=== PATIENT | male | born 1965 | race Caucasian/White ===

== ENCOUNTER → 2016-12-26 | Outpatient (CLI) | payer OTHER ==
[~2016-12-26] VITALS: Ht 165.1 cm; Wt 86.3 kg
[~2016-12-26] MED LIST: AMOX500C3 PO; BECL0.3A INH; CARV12.5 PO; CITA40TA12 PO; CLON1TAB3 PO; CLON2TAB3 PO; COEN100C7 PO; ESCI1TAB10 PO; GABA-113 PO; HYDR-3763 PO; HYDR-5688 PO; LOSA1TAB PO; LOSA1TAB38 PO; OMEP40CA PO; OXYC-57 PO; PRAV20TA PO; TIOTCAP INH; TOPI50TA16 PO
[2016-12-26 09:14] VITALS: Ht 165.1 cm; Wt 86.3 kg
--- NOTE | 2016-12-26 10:09 | PAT Medication Instructions ---
Service Date Dec 26, 2016. Current Home Medication List Amoxicillin (Amoxil), 500 MG PO Q8H Beclomethasone Dipropionate (Qvar), 2 PUFFS INH BID Carvedilol (Coreg), 12.5 MG PO BID Citalopram Hydrobromide (Celexa), 40 MG PO QAM Clonazepam (Klonopin), 1 MG PO BID Coenzyme Q10 (Ubidecarenone) (Coq10), 100 MG PO QAM Gabapentin (Neurontin), 600 MG PO BID Hydrocodon/Acetaminophen 10MG/300MG (Vicodin Hp (10MG/300MG)), 1 TAB PO BID PRN for Pain Losartan Potassium (Cozaar), 100 MG PO QAM Omeprazole (Prilosec), 40 MG PO QAM Tiotropium Mulino (Spiriva Handihaler), 1 CAP INH QAM Medication Instructions For Your Scheduled Surgery Amoxicillin (Amoxil), 500 MG PO Q8H (currently taking for bronchitis- will finish prior to surgery) - Hold the following medications starting today 12/26/16: Coenzyme Q10 (Ubidecarenone) (Coq10), 100 MG PO QAM - Hold the following medications the morning of surgery: Losartan Potassium (Cozaar), 100 MG PO QAM - Take the following medications the morning of surgery with a sip of water: Tiotropium Mulino (Spiriva Handihaler), 1 CAP INH QAM Omeprazole (Prilosec), 40 MG PO QAM Hydrocodon/Acetaminophen 10MG/300MG (Vicodin Hp (10MG/300MG)), 1 TAB PO BID PRN for Pain (can take up to four hours prior to surgery if needed) Gabapentin (Neurontin), 600 MG PO BID Clonazepam (Klonopin), 1 MG PO BID Carvedilol (Coreg), 12.5 MG PO BID Citalopram Hydrobromide (Celexa), 40 MG PO QAM Beclomethasone Dipropionate (Qvar), 2 PUFFS INH BID - Take the following medications as scheduled the night before surgery: Hydrocodon/Acetaminophen 10MG/300MG (Vicodin Hp (10MG/300MG)), 1 TAB PO BID PRN for Pain Gabapentin (Neurontin), 600 MG PO BID Clonazepam (Klonopin), 1 MG PO BID Carvedilol (Coreg), 12.5 MG PO BID Beclomethasone Dipropionate (Qvar), 2 PUFFS INH BID If you have any questions please call us at [phone] or [phone] ( Pia) or [phone]
[2016-12-26 11:15] LABS: BASO % 0.3 %; BASO ABS # 0.02 K/uL (0-0.2); COMPLETE YES; HEMATOCRIT 43.8 % (42-52); IG% 0.3 %; LYMPH % 38.5 %; MEAN CORPUSCULAR HEMOGLOBIN 34.9 pg (25-34); MEAN CORPUSCULAR HGB CONC 34.9 g/dl (32-36); MEAN PLATELET VOLUME 10.2 fL (7.4-10.4); MONO % 8.2 %; NEUT % 50.7 %; PLATELET COUNT 257 K/uL (130-400); RED BLOOD COUNT 4.38 M/uL (4.7-6.1); WHITE BLOOD COUNT 6.49 K/uL (4.8-10.8)
[2016-12-26 11:17] LABS: URINE APPEARANCE CLEAR (CLEAR); URINE BILIRUBIN NEG (NEG); URINE COLOR DK YELLOW; URINE NITRITE NEG (NEG); URINE PH 6.5 (4.5-7.5); URINE SPECIFIC GRAVITY 1.032 (1.000-1.030); UROBILINOGEN NEG (NEG)
[2016-12-26 11:20] LABS: INR 0.9 (0.9-1.1); PARTIAL THROMBOPLASTIN RATIO 1.1; PROTHROMBIN TIME (PATIENT) 10.1 SECONDS (9.0-12.0)
[2016-12-26 11:23] LABS: MANUAL MICROSCOPIC REQUIRED? NO; REVIEW REQ? NO
--- NOTE | 2016-12-26 11:24 | DIAGNOSTIC IMAGING REPORT ---
CHEST PREADMISSION(PA/LAT) CLINICAL HISTORY: Preoperative chest, smoker, cough. COMPARISON STUDY: No previous studies for comparison. FINDINGS: The cardiac and mediastinal contours are normal. There is no evidence of focal pulmonary consolidation. There is no evidence of failure. No pleural effusions are visualized.[ There is an old left AC joint separation. IMPRESSION: No active disease in the chest. Electronically signed by: Musa Henry M.D. 12/26/2016 11:22 AM Dictated Date/Time: 12/26/2016 11:22 AM
[2016-12-26 11:48] LABS: BUN/CREATININE RATIO 20.9 (10-20); CALCIUM 8.4 mg/dl (8.5-10.1); CREATININE 0.92 mg/dl (0.60-1.40); POTASSIUM 3.8 mmol/L (3.5-5.1)
--- NOTE | 2016-12-26 16:57 | HISTORY & PHYSICAL EXAMINATION ---
DATE OF ADMISSION: 01/05/2017 CHIEF COMPLAINT: Right knee pain. HISTORY OF PRESENT ILLNESS: The patient is a 51-year-old male who complains of right knee pain presenting with pain and stiffness on the right side with an unknown injury. Says that the symptoms have been getting progressively worse. He describes the pain as being aching and sharp. He feels his knee gave way while walking. He has tried a cortisone injection with minimal relief. He has tried physical therapy with minimal relief. He would like to proceed with ACL reconstruction allograft. PAST MEDICAL HISTORY: Significant for hypercholesterolemia, COPD, sleep apnea, anxiety, shortness of breath while climbing stairs, osteoarthritis, GERD, BPH. PAST SURGICAL HISTORY: Right hip replacement in 2014, cholecystectomy, left ACL reconstruction, tonsillectomy. SOCIAL HISTORY: The patient denies alcohol use. He smokes half pack a day for 31 years. He denies IV drug use. He lives in a 1-story house. He is currently on disability. FAMILY HISTORY: Dad had a heart attack. Mom had a brain aneurysm. MEDICATIONS: Celexa 40 mg once a day, Prilosec 20 mg once a day, QVAR 80 mg b.i.d., Klonopin 1 mg b.i.d., losartan 100 mg daily, gabapentin 600 mg b.i.d. ALLERGIES: TO CODEINE AND ALBUTEROL. REVIEW OF SYSTEMS: He denies fevers, chills, headaches, weight loss, double vision, blurry vision, sore throat, hearing loss, tremors, dizziness, numbness or tingling, tired, thirsty, hot or cold intolerance, abdominal pain, nausea, vomiting, diarrhea, chest pain, swelling into his legs or feet, frequency of going to the bathroom, pain or burning with urination, incontinence, wheezing, cough, shortness of breath, depression, thoughts of harming himself or harm others. There is no anxiousness. He is positive for joint pain, stiffness and swelling of the right knee. OBJECTIVE: GENERAL APPEARANCE: The patient is a 51-year-old male sitting in no acute distress, well dressed, well nourished. He is awake, alert and oriented x3. VITAL SIGNS: He is 5 feet 5 inches, 188 pounds, blood pressure 129/99. HEENT: Extraocular movements are intact. PERRLA, mucosa was moist. No septal deviation. NECK: Supple with no lymphadenopathy, no JVD, no thyromegaly. HEART: Regular rate and rhythm with no murmurs or gallops. LUNGS: Clear to auscultation without wheezing or rhonchi. ABDOMEN: Soft, nontender, nondistended. Normal bowel sounds. No hepatosplenomegaly. EXTREMITIES: Paying particular attention to the right lower extremity, his knee skin is intact without ecchymosis or erythema. The patient has full range of motion of both extremities. He has appropriate strength bilaterally. He is neurovascularly intact. He does have a positive Sravan, positive anterior drawer. He is stable with varus and valgus stress tests. His tenderness is diffuse throughout the right knee. DIAGNOSTICS: MRI of the right knee shows a complete ACL tear, acute microfracture of the posterolateral tibial plateau, acute injury of the lateral patellofemoral ligament and distal IT band and chronic Segond fracture. IMPRESSION: Right anterior cruciate ligament tear. PLAN: The patient is scheduled for right knee ACL reconstruction with allograft. We discussed the risks and the benefits to the surgery that included but not limited to blood vessel damage, nerve damage, infection, need for revision surgeries, loss of motion, failure to relieve all symptoms and anesthesia risks. The patient understands these risks and wishes to proceed. All questions were answered to his satisfaction. WE NEED TO STAY AWAY FROM DEEP HIP FLEXION DUE TO HIS HIP ARTHROPLASTY. REGINO
== END | disposition home or self-care (01) ==
LOC: C.LAB 08:00 → EDSTATUS 01-05 08:30
PROVIDERS: ATTEND Orthopaedic Surgery
DX: Z01.810 Encounter for preprocedural cardiovascular examination (principal); Z01.812 Encounter for preprocedural laboratory examination

== ENCOUNTER → 2017-03-21 | Outpatient (CLI) | payer OTHER ==
[~2017-03-21] MED LIST changes: -AMOX500C3 PO; -CLON2TAB3 PO; -COEN100C7 PO; -ESCI1TAB10 PO; -LOSA1TAB PO; -PRAV20TA PO; -TOPI50TA16 PO
[2017-03-21 13:22] LABS: INR 0.9 (0.9-1.1); PARTIAL THROMBOPLASTIN RATIO 1.1; PROTHROMBIN TIME (PATIENT) 10.1 SECONDS (9.0-12.0)
[2017-03-21 13:25] LABS: BASO % 0.2 %; BASO ABS # 0.01 K/uL (0-0.2); COMPLETE YES; EOS % 1.4 %; HEMATOCRIT 46.6 % (42-52); IG% 0.2 %; LYMPH % 43.7 %; LYMPH ABS # 2.72 K/uL (1.2-3.4); MEAN CELL VOLUME 103.8 fL (80-100); MEAN CORPUSCULAR HEMOGLOBIN 35.9 pg (25-34); MEAN CORPUSCULAR HGB CONC 34.5 g/dl (32-36); MONO % 11.2 %; NEUT % 43.3 %; PLATELET COUNT 301 K/uL (130-400); RED BLOOD COUNT 4.49 M/uL (4.7-6.1); WHITE BLOOD COUNT 6.23 K/uL (4.8-10.8)
[2017-03-21 13:36] LABS: URINE APPEARANCE CLEAR (CLEAR); URINE BILIRUBIN NEG (NEG); URINE COLOR DK YELLOW; URINE NITRITE NEG (NEG); URINE PH 6.5 (4.5-7.5); URINE SPECIFIC GRAVITY 1.021 (1.000-1.030); UROBILINOGEN NEG (NEG); ZZUR CULT IF INDIC CLEAN CATCH NO
[2017-03-21 13:42] LABS: MANUAL MICROSCOPIC REQUIRED? NO; REVIEW REQ? NO
[2017-03-21 13:57] LABS: BLOOD UREA NITROGEN 16 mg/dl (7-18); BUN/CREATININE RATIO 16.4 (10-20); CARBON DIOXIDE 30 mmol/L (21-32); CHLORIDE 103 mmol/L (98-107); GLUCOSE 86 mg/dl (70-99); POTASSIUM 4.4 mmol/L (3.5-5.1); SODIUM 139 mmol/L (136-145)
[2017-03-21 14:23] LABS: CALCIUM 9.4 mg/dl (8.5-10.1)
== END | disposition home or self-care (01) ==
LOC: C.LABMFLN 09:28
PROVIDERS: ATTEND Orthopaedic Surgery
DX: Z01.812 Encounter for preprocedural laboratory examination (principal)

== ENCOUNTER → 2017-04-05 | Outpatient (CLI) | payer OTHER ==
[2017-04-05 13:10] LABS: HEMATOCRIT 43.9 % (42-52); MEAN CELL VOLUME 101.2 fL (80-100); MEAN CORPUSCULAR HEMOGLOBIN 34.6 pg (25-34); MEAN CORPUSCULAR HGB CONC 34.2 g/dl (32-36); MEAN PLATELET VOLUME 9.9 fL (7.4-10.4); PLATELET COUNT 297 K/uL (130-400); RED BLOOD COUNT 4.34 M/uL (4.7-6.1); WHITE BLOOD COUNT 6.31 K/uL (4.8-10.8)
[2017-04-05 13:14] LABS: INR 0.9 (0.9-1.1); PROTHROMBIN TIME (PATIENT) 10.1 SECONDS (9.0-12.0)
[2017-04-05 13:22] LABS: ALT/SGPT 25 U/L (12-78); BLOOD UREA NITROGEN 15 mg/dl (7-18); BUN/CREATININE RATIO 16.7 (10-20); CARBON DIOXIDE 30 mmol/L (21-32); CHLORIDE 105 mmol/L (98-107); CHOLESTEROL 229 mg/dl (0-200); CREATININE 0.88 mg/dl (0.60-1.40); GLUCOSE 90 mg/dl (70-99); SODIUM 140 mmol/L (136-145); TRIGLYCERIDES 178 mg/dl (0-150); VERY LOW DENSITY LIPOPROT CALC 36 mg/dl
[2017-04-05 13:23] LABS: CALCIUM 9.6 mg/dl (8.5-10.1)
[2017-04-05 13:25] LABS: ALKALINE PHOSPHATASE 70 U/L (45-117); AST/SGOT 18 U/L (15-37); CHOLESTEROL/HDL RATIO 6.5; HDL CHOLESTEROL 35 mg/dl; LDL CHOLESTEROL CALCULATED 158 mg/dl
== END | disposition home or self-care (01) ==
LOC: C.LABMFLN 08:17
PROVIDERS: ATTEND Family Medicine
DX: Z01.818 Encounter for other preprocedural examination (principal); F32.9 Major depressive disorder, single episode, unspecified; F41.1 Generalized anxiety disorder; F10.20 Alcohol dependence, uncomplicated; K21.9 Gastro-esophageal reflux disease without esophagitis; I10 Essential (primary) hypertension; J45.909 Unspecified asthma, uncomplicated; G25.0 Essential tremor; E78.00 Pure hypercholesterolemia, unspecified; E87.1 Hypo-osmolality and hyponatremia

== ENCOUNTER 2017-04-06 07:57 | Day surgery (SDC) | payer OTHER ==
[2017-03-08 12:09] VITALS: BMI 31.0
--- NOTE | 2017-04-01 19:45 | HISTORY & PHYSICAL EXAMINATION ---
DATE OF ADMISSION: 04/06/2017 CHIEF COMPLAINT: Right knee pain. HISTORY OF PRESENT ILLNESS: The patient is a 51-year-old male who complains of right knee pain. He presents with pain and stiffness on the right side with an unknown injury. He states that his symptoms have been getting progressively worse over time. He describes the pain as being aching and sharp. He feels his knee gives way with walking. He has tried cortisone injections and physical therapy with minimal relief. He would like to proceed with ACL reconstruction with the use of an allograft for his right knee. PAST MEDICAL HISTORY: Significant for hypercholesterolemia, COPD, sleep apnea, anxiety, shortness of breath while climbing stairs, osteoarthritis, GERD and BPH. PAST SURGICAL HISTORY: Right hip replacement in 2013, cholecystectomy, left ACL reconstruction, tonsillectomy. SOCIAL HISTORY: The patient denies alcohol use. He smokes half pack a day for 31 years. He denies IV drug use. He lives in a 1-story house. He is currently on disability. FAMILY HISTORY: Dad had a heart attack. Mom had a brain aneurysm. MEDICATIONS: Celexa 40 mg once a day, Prilosec 20 mg once a day, QVAR 80 mg b.i.d., Klonopin 1 mg b.i.d., losartan 100 mg daily, gabapentin 600 mg b.i.d. ALLERGIES: CODEINE, ALBUTEROL, TRAMADOL. REVIEW OF SYSTEMS: He denies fevers, chills, headaches, weight loss, double vision, blurry vision, sore throat, hearing loss, tremors, dizziness, numbness or tingling, tired, thirsty, hot and cold intolerance, abdominal pain, nausea, vomiting, diarrhea, chest pain, swelling into his legs or feet, frequency going to the bathroom, pain or burning with urination, incontinence, wheezing, cough, shortness of breath, depression, thoughts to harm himself or harm others, nervousness or anxiousness. He is positive for joint pain and stiffness of the right knee. OBJECTIVE: GENERAL APPEARANCE: The patient is a 51-year-old male sitting in no acute distress, well dressed, well nourished. He is awake, alert and oriented x3. VITAL SIGNS: He is 5 feet 5 inches, 188 pounds, blood pressure was 98/70. HEAD, EYES, EARS, NOSE, AND THROAT: Extraocular movements are intact. Normocephalic, atraumatic. PERRLA. Mucosa was moist. No septal deviation. NECK: Supple, no lymphadenopathy, no JVD, no thyromegaly. HEART: Regular rate and rhythm with no murmurs or gallops. LUNGS: Clear to auscultation. No wheezing or rhonchi. ABDOMEN: Soft, nontender, nondistended. Normal bowel sounds, no hepatosplenomegaly. EXTREMITIES: Paying particular attention to his right lower extremity, his skin is intact without ecchymosis or erythema. The patient has full range of motion of both extremities. He has appropriate strength bilaterally. He is neurovascularly intact. He has a positive Sravan, positive anterior drawer on the right side. He is stable with valgus and varus stress tests. His tenderness is diffuse throughout the right knee. DIAGNOSTICS: MRI of the right knee shows a complete ACL tear, acute microfracture of the posterolateral tibial plateau, acute injury of the lateral patellofemoral ligament and distal IT band and chronic Segond fracture. IMPRESSION: Right anterior cruciate ligament tear. PLAN: The patient is scheduled for right knee ACL reconstruction with allograft. We discussed the risks and benefits to surgery included but not limited to blood vessel damage, nerve damage, infection, need for revision surgeries, loss of motion, failure to relieve all symptoms and anesthesia risks. The patient understands these risks and he wishes to proceed. All questions were answered to his satisfaction. Please note we need to stay away from deep hip flexion due to his hip arthroplasty. REGINO
[~2017-04-06] VITALS: Ht 165.1 cm; Wt 81.7 kg
[~2017-04-06 07:57] MED LIST changes: +CEFAZOLIN 2000 MG/60 ML D5W IV SCH; +FENTANYL CITRATE INJ 50 MCG/1 ML 2 ML VIAL ONE; -HYDR-5688 PO; +LACTATED RINGER'S 1000ML 1,000 ML IV SCH; +LIDOCAINE HCL 2% 2 ML VIAL (20MG/ML) ONE; +MIDAZOLAM HCL 1 MG/ML 2ML VIAL ONE; -OXYC-57 PO; +PROPOFOL IV EMULSION 10 MG/ML 20 ML VIAL IV ONE
[2017-04-06] MEDS ORDERED: D5W AND 1/2NSS + 20MEQ KCL 1,000 ML IV SCH (08:20)
--- NOTE | 2017-04-06 08:20 | History & Physical Bridge Note ---
H&P Re-Evaluation Bridge Note: I have examined the patient, reviewed the History & Physical and in the interval since the performance of the History & Physical I have noted the following changes of clinical significance: No changes noted
[2017-04-06 08:22] VITALS: BP 116/81; PULSE 72; TEMP 36.7; O2SAT 97; Ht 165.1 cm; Wt 81.7 kg
[2017-04-06] MEDS ORDERED: ALUMINUM/MAGNESIUM/SIMETH (MAALOX MAX) 30 ML UDC PO PRN (08:30)
[2017-04-06] MEDS ORDERED: ACETAMINOPHEN 500 MG TAB PO SCH (08:30)
[2017-04-06] MEDS ORDERED: KETOROLAC TROMETHAMINE 30 MG/ML VIAL IV. PRN (08:30)
[2017-04-06] MEDS ORDERED: ONDANSETRON INJ 2 MG/ML 2 ML VIAL IV PRN ×3 (08:30→11:45)
[2017-04-06] MEDS ORDERED: DiphenhydrAMINE HCL 50 MG/ML VIAL IV PRN (08:30)
[2017-04-06] MEDS ORDERED: OXYCODONE HCL IR 5 MG TAB (IMMEDIATE RELEASE) PO PRN (08:30)
[2017-04-06] MEDS ORDERED: VANCOMYCIN INJ 1,000 MG in SODIUM CHLORIDE 0.9% 250ML 250 ML IV SCH (08:30)
[2017-04-06] MEDS ORDERED: MAGNESIUM HYDROXIDE SUSP 30 ML UDC PO PRN (08:30)
[2017-04-06] MEDS ORDERED: MoRPHine SULFATE 2 MG/ML CARP IV PRN (08:30)
[2017-04-06] MEDS ORDERED: METOCLOPRAMIDE HCL INJ 5 MG/ML 2 ML VIAL IV PRN (08:30)
[2017-04-06] MEDS ORDERED: NURSING VERBAL MED ORDER STA (08:44)
[2017-04-06] MEDS ORDERED: EpHEDrine SULFATE INJ 50 MG/ML AMP IV PRN (09:00)
[2017-04-06] MEDS ORDERED: TIOTROPIUM BROMIDE 5 PUFF/90 MCG INH INH SCH (09:00)
[2017-04-06] MEDS ORDERED: NON-FORMULARY MEDICATION (Omeprazole (Prilosec) 40 MG) PO SCH (09:00)
[2017-04-06] MEDS ORDERED: GABAPENTIN 300 MG CAP PO SCH (09:00)
[2017-04-06] MEDS ORDERED: ASPIRIN 81 MG ECTAB PO SCH (09:00)
[2017-04-06] MEDS ORDERED: OXYCODONE HCL 10 MG TABCR (OXYCONTIN) PO SCH (09:00)
[2017-04-06] MEDS ORDERED: LOSARTAN POTASSIUM 50 MG TAB PO SCH (09:00)
[2017-04-06] MEDS ORDERED: MULTIVITAMIN TAB PO SCH (09:00)
[2017-04-06] MEDS ORDERED: DOCUSATE SODIUM 100 MG CAP PO SCH (09:00)
[2017-04-06] MEDS ORDERED: NALOXONE HCL 0.4 MG/1 ML VIAL/CARP IV PRN (09:00)
[2017-04-06] MEDS ORDERED: BECLOMETHASONE DIP HFA 80 MCG 8.7G INH INH SCH (09:00)
[2017-04-06] MEDS ORDERED: ATROPINE SULFATE 0.1 MG/ML 5ML SYR IV PRN (09:00)
[2017-04-06] MEDS ORDERED: CLONAZEPAM 1 MG TAB PO SCH (09:00)
[2017-04-06] MEDS ORDERED: CARVEDILOL 12.5 MG TAB PO SCH (09:00)
[2017-04-06] MEDS ORDERED: PANTOprazole SOD 40 MG TAB PO SCH (09:00)
[2017-04-06] MEDS ORDERED: CeleBREX 200 MG CAP PO SCH (09:00)
[2017-04-06] MEDS ORDERED: CITALOPRAM 40 MG TAB PO SCH (09:00)
[2017-04-06] MEDS ORDERED: BUPIVACAINE 0.25% 30 ML VIAL ONE (09:12)
[2017-04-06] MEDS ORDERED: RANITIDINE HCL 25 MG/ML INJ ONE (09:38)
[2017-04-06] MEDS ORDERED: PROPOFOL IV EMULSION 10 MG/ML 20 ML VIAL IV ONE (09:51)
[2017-04-06] MEDS ORDERED: EpHEDrine SULFATE 50MG/5ML SYR ONE (09:58)
[2017-04-06] MEDS ORDERED: HYDROmorphone INJ 2 MG/ML SYR/VIAL ONE (10:13)
[2017-04-06] MEDS ORDERED: OXYC-57 PO ×2 (11:44)
[2017-04-06] MEDS ORDERED: MoRPHine SULFATE 4 MG/ML 1 ML CARP\\VIAL IV PRN (11:45)
[2017-04-06] MEDS ORDERED: OXYCODONE/ACETAMINOPHEN 5-325 TAB PO PRN ×2 (11:45)
[2017-04-06] MEDS: FENTANYL CITRATE INJ 50 MCG/1 ML 2 ML VIAL IV PRN ×4 (11:49→12:09)
--- NOTE | 2017-04-06 11:51 | Discharge Instructions ---
Discharge Instructions Date of Service April 06, 2017. Visit Reason for Visit: Right Knee Anterior Cruciate Ligament Tear Discharge Discharge Diagnosis / Problem: Right Knee ACL Tear Discharge Goals Goal(s): Decrease discomfort, Improve function Activity Recommendations Activity Limitations: per Instructions/Follow-up section Weightbearing Status: Right weightbearing (as tolerated with immobilizer on) Anesthesia . Post Anesthesia Instructions: If you have had General Anesthesia or IV Sedation: * Do not drive today. * Resume driving when surgeon permits. * Do not make important decisions or sign legal documents today. * Call surgeon for: 1. Temperature elevations greater than 101 degrees F. 2. Uncontrollable pain. 3. Excessive bleeding. 4. Persistent nausea and vomiting. 5. Medication intolerance (nausea, vomiting or rash). * For nausea and vomiting use only clear liquids such as: tea, soda, bouillon until nausea subsides, then gradually increase diet as tolerated. * If you have any concerns or questions, call your surgeon's office. If physician is unavailable and it is an emergency, call 911 or go to the nearest emergency room. . Instructions / Follow-Up Instructions / Follow-Up ACTIVITY RECOMMENDATIONS: * Begin physical therapy per Dr Ward's PT prescription. * Do range of motion knee exercises, as instructed, 4-6 times daily. * Weight bearing as instructed prior to discharge. * May drive car if: a. Standard transmission - right or left leg surgery - as soon as walking without crutches. b. Automatic transmission - left leg surgery - immediately right leg - as soon as walking without crutches. SPECIAL CARE INSTRUCTIONS: * Change dressing in 48 hours. You may apply Band Aids to the small incisions that are closed with black suture. Place 4x4 gauze over the larger incision below the knee and keep it covered with an anna wrap * Apply ice to knee for 72 hours after surgery. * Knee immobilizer in extension for the first week except for range of motion exercises. * Call office at if there are any problems such as excessive wound drainage or increased temperature above 100 degrees F. FOLLOW UP VISIT: If appointment is not already scheduled: Please call [facility] to make a follow-up appointment for 10-14 days after your surgery at . Diet Recommendations Recommended Home Diet: resume previous diet Procedures Procedures Performed: Right Knee Arthroscopic Anterior Cruciate Ligament Reconstruction with Allograft Pending Studies Studies pending at discharge: no Medical Emergencies . Who to Call and When: Medical Emergencies: If at any time you feel your situation is an emergency, please call 911 immediately. . Non-Emergent Contact Non-Emergency issues call your: Surgeon Call Non-Emergent contact if: temperature is above 101.5, your pain is not controlled, your pain is worsening, wound has increased drainage, wound has increased redness . . "Provider Documentation" section prepared by Armando Mares. . [place] Drug Monitoring Program Search Results: patient reviewed within database, no issues identified
[2017-04-06] MEDS ORDERED: FERROUS GLUCONATE 324 MG TAB PO SCH (12:00)
[2017-04-06] MEDS: HYDROmorphone INJ 1 MG/ML SYR IV PRN ×2 (12:25→12:33)
--- NOTE | 2017-04-06 13:17 | Anesthesiology Progress Note ---
Anesthesia Post Op Note Date & Time April 06, 2017 at 13:18 Vital Signs Pain Intensity: 4 Vital Signs Past 12 Hours Date Time Temp Pulse Resp B/P Pulse Ox O2 Delivery O2 Flow Rate FiO2 04/06/17 13:06 128/76 04/06/17 13:03 80 22 04/06/17 13:03 84 22 100 04/06/17 13:01 127/82 04/06/17 12:58 76 14 04/06/17 12:58 77 14 100 04/06/17 12:56 126/87 04/06/17 12:53 80 15 99 04/06/17 12:53 82 15 04/06/17 12:51 98/74 04/06/17 12:48 82 9 95 04/06/17 12:48 84 9 04/06/17 12:47 83 14 99 04/06/17 12:46 83 14 115/80 99 04/06/17 12:41 77 21 108/75 99 04/06/17 12:36 86 13 120/69 99 04/06/17 12:26 86 13 124/87 99 04/06/17 12:21 78 16 138/80 98 04/06/17 12:11 80 18 91 04/06/17 12:10 139/91 04/06/17 12:06 83 21 116/91 87 04/06/17 12:01 81 12 96 04/06/17 12:00 122/91 04/06/17 11:56 84 17 125/88 96 04/06/17 11:51 85 14 125/95 100 04/06/17 11:46 86 14 120/94 100 04/06/17 11:41 86 14 100 04/06/17 11:36 36.3 86 16 126/87 100 04/06/17 11:36 36.3 88 20 136/87 100 Mask 10 04/06/17 08:22 36.7 72 18 116/81 97 Room Air Notes Mental Status: alert / awake / arousable, participated in evaluation Pt Amnestic to Procedure: Yes Nausea / Vomiting: adequately controlled Pain: adequately controlled Airway Patency, RR, SpO2: stable & adequate BP & HR: stable & adequate Hydration State: stable & adequate Anesthetic Complications: no major complications apparent Being weaned off n/c o2. Uneventful recovery.
[2017-04-06 13:30] VITALS: BP 125/90; PULSE 60; TEMP 36.5; O2SAT 98
[2017-04-06 14:15] VITALS: BP 123/76; PULSE 85; TEMP 36.7; O2SAT 92
[2017-04-06 14:30] VITALS: BP 119/72; PULSE 80; TEMP 36.6; O2SAT 94
[2017-04-06] MEDS ORDERED: NURSING VERBAL MED ORDER ONE (14:30)
[2017-04-06 15:30] VITALS: BP 123/71; PULSE 78; TEMP 36.3; O2SAT 95
--- NOTE | 2017-04-06 16:12 | OPERATIVE REPORT ---
DATE OF OPERATION: 04/06/2017 PREOPERATIVE DIAGNOSES: Right knee anterior cruciate ligament tear and medial meniscal tear. POSTOPERATIVE DIAGNOSIS: Same. PROCEDURES: Right knee ACL reconstruction with allograft anterior tib tendon and partial medial meniscectomy. SURGEON: Dr. Ward. SHEET ROCKER: Armando Mares PA-C who was necessary for assistance of procedure with positioning, prepping, draping, retraction, graft prepping and closure. ANESTHESIA: General endotracheal anesthesia with adductor canal block. SPECIMENS: None. COMPLICATIONS: None. ESTIMATED BLOOD LOSS: 5 mL. INDICATIONS: The patient is a 51-year-old male with longstanding instability in the right knee. He has failed conservative measures including anti-inflammatories, physical therapy and bracing. He wished to proceed with ACL reconstruction. Risks, benefits and alternatives to surgery including but not limited to infection, DVT, pain, stiffness, need for surgery, failure to relieve all symptoms, dislocation of the total hip, proximal to this knee concerned, damage to blood vessels, damage to nerves, risks of anesthesia were discussed with the patient and he wished to proceed. PROCEDURE: The patient was identified, laterality was confirmed and marked. He received a preoperative antibiotic as well as an adductor canal block. A well-padded tourniquet was placed on the thigh. Limb was prepped and draped in usual sterile manner with ChloraPrep. Limb was exsanguinated and tourniquet was inflated. I made a standard anterolateral viewing portal, made a stab incision overlying the suprapatellar pouch and under spinal localization established anteromedial portal. No significant changes undersurface of patella and the trochlea, he had some grade 2 change of cartilage of the medial femoral condyle. Unstable chondral flaps were debrided back to a stable base utilizing a shaver. A large complex tear of the posterior horn extending into the body and partial aspect of the anterior horn of the medial meniscus. This was debrided back to a stable base utilizing combination of bharat as well as meniscal biter. PCL was intact, he had a chronic rupture of the ACL. The residual ACL stump was debrided. We inspected the lateral compartment, partial lateral from condyle and tibial plateaus relatively normal and lateral meniscus was normal. I then performed a notchplasty for visualization purposes. Anterior tibialis allograft was prepared on the back table, each end of the graft was whipstitched with an Ultrabraid suture, it measured 8 mm on the femoral side, 8 mm on the tibial side. We placed a guide pin centered between the anterior horn of the lateral meniscus and PCL. I made a orville on the skin and made an incision in the anterior medial face of the tibia, sharply incising the skin utilizing Bovie electrocautery to achieve hemostasis. We then placed the pin into the tibia then over reamed with an 8 mm reamer. We then placed a 6 mm over the top guide and drilled for our femoral tunnel along the lateral wall of the femur, measured for a 30 mm tunnel, so we used a 10 mm Endobutton. We passed a shuttling suture into the femur and retrieved out the tibia and used this to shuttle our graft. We had difficulty showing the graft through the tibial tunnel, so we upsized to an 8.5 mm tunnel on both the tibial side as well as the femoral side and then we had good graft passage. We put the button, had good stability of the graft, the knee was cycled removing exchange creep. Then while holding the posterior drawer with the graft on the tibial side with 8 25 mm PEEK interference screw from Aggarwal \T\ Nephew. We then backed up our tibial fixation with a 4.5 mm footprint anchor that we placed distally placing the 4 Ultrabraid sutures into this. We had a good religious of normal Sravan's, final range of motion. ACL graft was probed arthroscopically and was found to be rock solid. All instrumentation was removed from the knee, portal sites were closed with nylon. The incision was closed with interrupted 2-0 Vicryl suture and the skin with running 4-0 Monocryl. Sterile dressing was applied and a knee immobilizer placed. All needle and sponge counts were correct at the end of the procedure. The patient was transferred to the PACU in stable condition without apparent complication. I attest to the content of the Intraoperative Record and any orders documented therein. Any exceptio ns are noted below.
--- NOTE | 2017-04-06 17:21 | [facility] Post Operative Brief Note ---
Immediate Operative Summary Operative Date April 06, 2017. Pre-Operative Diagnosis Right anterior cruciate ligament tear, mmt Post-Operative Diagnosis Right anterior cruciate ligament tear, mmt Procedure(s) Performed Right Knee Arthroscopic Anterior Cruciate Ligament Reconstruction with Allograft, pmm Surgeon Dr. Ward Cigarette Tester Surgeon(s) Armando Mares PA-C Estimated Blood Loss 5CC Findings above Specimens 0 Drains 0 Anesthesia geta Complication(s) None Disposition Recovery Room / PACU
[2017-04-07] MEDS ORDERED: DEXAMETHASONE 4 MG TAB PO SCH (07:30)
[2017-04-07] MEDS ORDERED: HYDR-5688 PO ×2 (08:09)
== END 2017-04-06 15:40 | disposition home or self-care (01) ==
LOC: C.ACU 07:57
PROVIDERS: ATTEND Orthopaedic Surgery
DX: S83.511A Sprain of anterior cruciate ligament of right knee, initial encounter (principal); S83.231A Complex tear of medial meniscus, current injury, right knee, initial encounter; X58.XXXA Exposure to other specified factors, initial encounter; I10 Essential (primary) hypertension; J44.9 Chronic obstructive pulmonary disease, unspecified; J45.909 Unspecified asthma, uncomplicated; M19.90 Unspecified osteoarthritis, unspecified site; K21.9 Gastro-esophageal reflux disease without esophagitis; E66.9 Obesity, unspecified; Z96.641 Presence of right artificial hip joint; F32.9 Major depressive disorder, single episode, unspecified; F41.9 Anxiety disorder, unspecified; Z68.31 Body mass index [BMI] 31.0-31.9, adult; Z90.49 Acquired absence of other specified parts of digestive tract; Z98.890 Other specified postprocedural states; Z90.89 Acquired absence of other organs; F17.200 Nicotine dependence, unspecified, uncomplicated; Z88.5 Allergy status to narcotic agent; Z82.49 Family history of ischemic heart disease and other diseases of the circulatory system

== ENCOUNTER → 2017-05-31 | Outpatient (CLI) | payer OTHER ==
[~2017-05-31] MED LIST changes: -CEFAZOLIN 2000 MG/60 ML D5W IV SCH; -FENTANYL CITRATE INJ 50 MCG/1 ML 2 ML VIAL ONE; -HYDR-3763 PO; +HYDR-5688 PO; -LACTATED RINGER'S 1000ML 1,000 ML IV SCH; -LIDOCAINE HCL 2% 2 ML VIAL (20MG/ML) ONE; -MIDAZOLAM HCL 1 MG/ML 2ML VIAL ONE; +OXYC-57 PO; -PROPOFOL IV EMULSION 10 MG/ML 20 ML VIAL IV ONE
[2017-05-31 13:51] LABS: BLOOD UREA NITROGEN 16 mg/dl (7-18); BUN/CREATININE RATIO 17.7 (10-20); CALCIUM 9.3 mg/dl (8.5-10.1); CARBON DIOXIDE 32 mmol/L (21-32); CHLORIDE 101 mmol/L (98-107); CREATININE 0.91 mg/dl (0.60-1.40); GLUCOSE 92 mg/dl (70-99); SODIUM 137 mmol/L (136-145)
== END | disposition home or self-care (01) ==
LOC: C.LABMFLN 09:55
PROVIDERS: ATTEND Family Medicine
DX: M85.80 Other specified disorders of bone density and structure, unspecified site (principal); I10 Essential (primary) hypertension

== ENCOUNTER → 2017-07-24 | Outpatient (CLI) | payer OTHER ==
[2017-07-24 13:35] LABS: HEMATOCRIT 46.8 % (42-52); MEAN CELL VOLUME 99.6 fL (80-100); MEAN CORPUSCULAR HEMOGLOBIN 34.7 pg (25-34); MEAN CORPUSCULAR HGB CONC 34.8 g/dl (32-36); MEAN PLATELET VOLUME 10.3 fL (7.4-10.4); PLATELET COUNT 290 K/uL (130-400); WHITE BLOOD COUNT 8.21 K/uL (4.8-10.8)
[2017-07-24 13:41] LABS: URINE APPEARANCE CLEAR (CLEAR); URINE BILIRUBIN NEG (NEG); URINE COLOR YELLOW; URINE EPITHELIAL CELL AUTO 0-5 /lpf (0-5); URINE NITRITE NEG (NEG); URINE PH 5.5 (4.5-7.5); URINE SPECIFIC GRAVITY 1.016 (1.000-1.030); UROBILINOGEN NEG (NEG); ZZUR CULT IF INDIC CLEAN CATCH NO
[2017-07-24 13:45] LABS: MANUAL MICROSCOPIC REQUIRED? NO; REVIEW REQ? NO
== END | disposition home or self-care (01) ==
LOC: C.LABMFLN 11:20
PROVIDERS: ATTEND Family Medicine
DX: K62.5 Hemorrhage of anus and rectum (principal); R35.8 Other polyuria